=== PATIENT | female | born 1955 | race Caucasian/White ===

== ENCOUNTER 2017-08-10 06:54 | Inpatient (IN) | payer BC, SELFPAY ==
[2017-07-26 09:05] VITALS: BP 137/81; PULSE 99; RESP 16; TEMP 37.3; O2SAT 96; BMI 32.9
--- NOTE | 2017-07-26 09:41 | SDCEKG_ITS ---
Test Reason : Blood Pressure : / mmHG Vent. Rate : 089 BPM Atrial Rate : 089 BPM P-R Int : 160 ms QRS Dur : 086 ms QT Int : 382 ms P-R-T Axes : 029 029 042 degrees QTc Int : 464 ms Normal sinus rhythm Normal ECG Confirmed by GEORGINA ONEAL, PRINCE ([id number]), copy editor SANKET BERNARDO ([id number]) on 07/29/2017 1:35:10 PM Referred By: Yovanny Weller Confirmed By:PRINCE ERICKSON MD
[2017-07-26 10:16] LABS: Absolute Lymphocyte Count 2.56 X10^3/ul (0.83-4.51); Absolute Neutrophil Count 5.2 X10^3/uL (2.0-7.7); Basophil# 0.02 X10^3/uL; Basophil% 0.2 % (0-1); Eosinophil# 0.23 X10^3/uL; Eosinophils% 2.6 % (0-5); Hematocrit 43.1 % (37-47); Hemoglobin 14.1 g/dl (12.0-15.0); Lymphocyte # 2.56 X10^3/ul (4.0); Lymphocyte % 28.6 % (19-41); Mean Corp Hgb Conc 32.7 g/gl (32-36); Mean Corpuscular Hgb 28.3 pg (27.0-32.0); Mean Corpuscular Volume 86.5 fL (81-99); Mean Platelet Vol. 10.5 fl (6.2-12.0); Monocyte# 0.87 X10^3/uL; Monocyte% 9.7 % (0-10); Neutrophil # 5.23 X10^3/uL (2.7-7.7); Neutrophil % 58.6 % (47-70); Platelet Count 269 K/mm3 (150-450); RBC Distribution Width CV 13.8 % (11.6-14.6); RBC Distribution Width SD 43.6 fl (35.1-43.9); Red Blood Count 4.98 M/mm3 (4.2-5.4); White Blood Count 8.9 K/mm3 (4.4-11.0)
[2017-07-26 10:17] LABS: POSITIVE COUNT NO; POSITIVE DIFFERENTIAL NO; POSITIVE MORPHOLOGY NO
[2017-07-26 10:37] LABS: Hemoglobin A1c 7.1 % (4.2-6.3)
[2017-07-26 10:38] LABS: Anion Gap 9 (5-15); BUN 15 mg/dL (7-18); BUN/Creat Ratio 22.1 RATIO (10-20); Calcium,Total 8.7 mg/dL (8.5-10.1); Chloride 105 mmol/L (98-107); Creatinine, Serum 0.68 mg/dL (0.55-1.02); EST Glomerular Filtration Rate 93 mL/min (>60); Est Glom Filt Rate - Afr Amer 113 mL/min (>60); Estimated Creatinine Clearance 74.07 ml/min; Glucose 162 mg/dL (74-106); Potassium 3.8 mmol/L (3.5-5.1); Sodium Level 140 mmol/L (136-145)
--- NOTE | 2017-07-28 15:22 | PCM.HP.BLA ---
History and Physical DATE OF SURGERY: 08/10/2017 SCHEDULED PROCEDURE: Direct anterior right total hip arthroplasty HISTORY OF PRESENT ILLNESS: This is a 62-year-old female who has been having ongoing right hip pain for approximately 3 years. She states over the past 6 months it is progressively become worse. Patient has pain that is constant, dull, aching, and sore. She has increased pain going up and down stairs, walking any amount of distance, sitting for extended periods of time, and driving. Patient does have start up pain. Pain is located in the right groin. Patient has had some sciatic pain that improved with chiropractic treatment. The pain does awaken her at night. She has increased pain with activities of daily living including shopping and leisure activities such as plain and picking up the grandkids. Patient has tried conservative measures consisting of rest, ice, elevation, and weight loss with minimal improvement. Patient has tried physical therapy in the past without any significant relief. She has been through intensive care medicine specialist for sciatic pain which has been helpful. She has tried oral medications consisting of naproxen with minimal relief. Patient denies previous surgery on the right hip. She has been using a cane when she has increased pain in the hip. After failing conservative measures and discussing all treatment options with with a right total hip arthroplasty. Patient does have a medical history pertinent for hypertension and type 2 diabetes mellitus. We are obtaining surgical clearance from her primary care physician Dr. Amado. Patient currently denies any chest pain, shortness of breath, fevers chills, recent infections. REVIEW OF SYSTEMS: ROS: Const: Denies anorexia, anxiety, change in appetite, fever and weight change,hard of hearing, and vision problems. CV: Denies chest pain, heart murmur, irregular heartbeat and peripheral vascular disease. Resp: Denies asthma, cough, pneumonia, sleep apnea, SOB, tuberculosis and wheezing. GI: Denies constipation, diarrhea, nausea, bloody stools and vomiting, and difficulty swallowing.Reports occasional heartburn. : Reports more than 3 months without a period Urinary: denies incontinence. Musculo: Denies leg swelling, trouble walking and weakness and limp. Skin: Reports tattoo, but denies Raynaud's and history of shingles. Neuro: Denies ambulatory dysfunction, dizziness, numbness/tingling and tremor. Psych: Denies anxiety, depression, insomnia, mental illness and stress. Brandon/Lymph: Denies anemia, bleeding/bruising tendency and past transfusion. Reviewed, no changes. PAST MEDICAL HISTORY: Advance Care Plan: Other Directive, LIVING WILL Effective Date: 11/04/2016 Comments: KELLY PENN-SON PMH: Medical Problems: Arthritis, High Blood Pressure, Diabetes Accidents: Fall - Fell 10/29/05 Fracture - right wrist/left elbow fx Surgical Hx: Hysterectomy - 1985 Tubal Ligation - 1980 Bilat Knee Meniscus Tears - 2005, 2009 Knee Replacement LT - (08/19/2014) @[facility] Anesthesia Complications: None Assistive Devices: Dentures, Glasses Reviewed, no changes. 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 Personal Habits: Smoking: Patient has never smoked.Cigarette Use: Never.Alcohol: Occasionally.Drug Use: Denies Use. Reviewed, no changes. VITALS: Ht: 64.5 Wt: 195lb Wt k.452 BMI: 33.0 BP: 118/72 Pulse: 70 Resp: 16 T: 98.5 T: 36.9C ALLERGIES: Tetracycline - Kidney Infection Tavist D - Blacks Out MEDICATIONS: Multivitamins 1 po qdAY, Metformin HCL 500 mg 2 tabs PO bid, Omeprazole 40 mg 1 by mouth every day, Amlodipine Besylate 10 mg 1 tab PO daily, Amaryl 2 mg one PO daily, Cymbalta 30 mg 1 by mouth every day, Tradjenta 5 mg 1 tab PO daily PRE-OP EXAM: General appearance:NORMAL Other: Eyes: Conjunctivae and lids: NORMAL Pupils: ERR Ears, Nose, Mouth, and Throat: NORMAL Other: Inspection of lips, teeth and gums: NORMAL Other: Neck: Examination of neck: no masses noted. Respiratory: Assessment of respiratory effort: NORMAL Other: Ausculation of lungs: clear to ausculation no wheeses, ronchi or rales. Cardiovascular: Ausculation of heart: regular rate and rhythem, no mummurs, gallops or rubs. Exam of carotid arteries: NORMAL Other: Gastrointestinal: Exam of abdomen: soft, nontender, nondistended bowel sounds present. Lymphatic: Palpation of nodes in neck: NORMAL Other: Palpation of nodes in Axillae: NORMAL Other: Neurological: see below Psychiatric: Orientation to time, place and person: NORMAL Other: Mood and affect: NORMAL Other: PHYSICAL EXAMINATION: Patient walks with a severe antalgic gait. Patient has increased pain with range of motion in the right hip with flexion and internal rotation. She has limited motion of internal and external rotation. Hip flexion is to 75?. Sensations intact light touch. Neurovascularly intact. IMAGING STUDIES: X-rays were obtained at [facility] [place] on July 14, 2017 of the right hip which reveals joint space narrowing, subchondral sclerosis, and osteophyte formation consistent with moderate to severe osteoarthritis. IMPRESSION: 1. Moderate to severe right hip osteoarthritis 2. Hypertension 3. Type 2 diabetes mellitus PLAN: Dr. Weller did discuss and review with the patient all treatment options including surgical versus nonsurgical. Patient wishes to proceed with above-stated procedure. Potential risks, benefits, and complications of this procedure were discussed in detail including but not limited to , infection, nerve and blood vessel damage, persistent pain, numbness, tingling, paresthesias, blood clot, pulmonary embolism, and requirement for further surgery. The patient expressed full understanding has no further questions for the doctor. Patient does agree to proceed with the above-stated procedure and has signed the surgery consent form. ___ I have re-examined the patient. There are no clinical changes since date of exam. ___ See progress notes for changes. ___ Dictated on admission Date: Time: Signature:
--- NOTE | 2017-07-28 15:30 | HP.PCM_ITS ---
History and Physical DATE OF SURGERY: 08/10/2017 SCHEDULED PROCEDURE: Direct anterior right total hip arthroplasty HISTORY OF PRESENT ILLNESS: This is a 62-year-old female who has been having ongoing right hip pain for approximately 3 years. She states over the past 6 months it is progressively become worse. Patient has pain that is constant, dull, aching, and sore. She has increased pain going up and down stairs, walking any amount of distance, sitting for extended periods of time, and driving. Patient does have start up pain. Pain is located in the right groin. Patient has had some sciatic pain that improved with chiropractic treatment. The pain does awaken her at night. She has increased pain with activities of daily living including shopping and leisure activities such as plain and picking up the grandkids. Patient has tried conservative measures consisting of rest, ice, elevation, and weight loss with minimal improvement. Patient has tried physical therapy in the past without any significant relief. She has been through medical care evaluation specialist for sciatic pain which has been helpful. She has tried oral medications consisting of naproxen with minimal relief. Patient denies previous surgery on the right hip. She has been using a cane when she has increased pain in the hip. After failing conservative measures and discussing all treatment options with with a right total hip arthroplasty. Patient does have a medical history pertinent for hypertension and type 2 diabetes mellitus. We are obtaining surgical clearance from her primary care physician Dr. Amado. Patient currently denies any chest pain, shortness of breath, fevers chills, recent infections. REVIEW OF SYSTEMS: ROS: Const: Denies anorexia, anxiety, change in appetite, fever and weight change, hard of hearing, and vision problems. CV: Denies chest pain, heart murmur, irregular heartbeat and peripheral vascular disease. Resp: Denies asthma, cough, pneumonia, sleep apnea, SOB, tuberculosis and wheezing. GI: Denies constipation, diarrhea, nausea, bloody stools and vomiting, and difficulty swallowing.Reports occasional heartburn. : Reports more than 3 months without a period Urinary: denies incontinence. Musculo: Denies leg swelling, trouble walking and weakness and limp. Skin: Reports tattoo, but denies Raynaud's and history of shingles. Neuro: Denies ambulatory dysfunction, dizziness, numbness/tingling and tremor. Psych: Denies anxiety, depression, insomnia, mental illness and stress. Brandon/Lymph: Denies anemia, bleeding/bruising tendency and past transfusion. Reviewed, no changes. PAST MEDICAL HISTORY: Advance Care Plan: Other Directive, LIVING WILL Effective Date: 11/04/2016 Comments: KELLY PENN- SON PMH: Medical Problems: Arthritis, High Blood Pressure, Diabetes Accidents: Fall - Fell 10/29/05 Fracture - right wrist/left elbow fx Surgical Hx: Hysterectomy - 1985 Tubal Ligation - 1980 Bilat Knee Meniscus Tears - 2005, 2009 Knee Replacement LT - (08/19/2014) @[facility] Anesthesia Complications: None Assistive Devices: Dentures, Glasses Reviewed, no changes. 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 Personal Habits: Smoking: Patient has never smoked.Cigarette Use: Never.Alcohol : Occasionally.Drug Use: Denies Use. Reviewed, no changes. VITALS: Ht: 64.5 Wt: 195lb Wt k.452 BMI: 33.0 BP: 118/72 Pulse: 70 Resp: 16 T: 98.5 T: 36.9C ALLERGIES: Tetracycline - Kidney Infection Tavist D - Blacks Out MEDICATIONS: Multivitamins 1 po qdAY, Metformin HCL 500 mg 2 tabs PO bid, Omeprazole 40 mg 1 by mouth every day, Amlodipine Besylate 10 mg 1 tab PO daily, Amaryl 2 mg one PO daily, Cymbalta 30 mg 1 by mouth every day, Tradjenta 5 mg 1 tab PO daily PRE-OP EXAM: General appearance:NORMAL Other: Eyes: Conjunctivae and lids: NORMAL Pupils: ERR Ears, Nose, Mouth, and Throat: NORMAL Other: Inspection of lips, teeth and gums: NORMAL Other: Neck: Examination of neck: no masses noted. Respiratory: Assessment of respiratory effort: NORMAL Other: Ausculation of lungs: clear to ausculation no wheeses, ronchi or rales. Cardiovascular: Ausculation of heart: regular rate and rhythem, no mummurs, gallops or rubs. Exam of carotid arteries: NORMAL Other: Gastrointestinal: Exam of abdomen: soft, nontender, nondistended bowel sounds present. Lymphatic: Palpation of nodes in neck: NORMAL Other: Palpation of nodes in Axillae: NORMAL Other: Neurological: see below Psychiatric: Orientation to time, place and person: NORMAL Other: Mood and affect: NORMAL Other: PHYSICAL EXAMINATION: Patient walks with a severe antalgic gait. Patient has increased pain with range of motion in the right hip with flexion and internal rotation. She has limited motion of internal and external rotation. Hip flexion is to 75?. Sensations intact light touch. Neurovascularly intact. IMAGING STUDIES: X-rays were obtained at [facility] [place] on July of the right hip which reveals joint space narrowing, subchondral sclerosis, and osteophyte formation consistent with moderate to severe osteoarthritis. IMPRESSION: 1. Moderate to severe right hip osteoarthritis 2. Hypertension 3. Type 2 diabetes mellitus PLAN: Dr. Weller did discuss and review with the patient all treatment options including surgical versus nonsurgical. Patient wishes to proceed with above- stated procedure. Potential risks, benefits, and complications of this procedure were discussed in detail including but not limited to , infection , nerve and blood vessel damage, persistent pain, numbness, tingling, paresthesias, blood clot, pulmonary embolism, and requirement for further surgery. The patient expressed full understanding has no further questions for the doctor. Patient does agree to proceed with the above-stated procedure and has signed the surgery consent form. ___ I have re-examined the patient. There are no clinical changes since date of exam. ___ See progress notes for changes. ___ Dictated on admission Date: Time: Signature:
[2017-08-10] VITALS (13 sets, daily range): BP systolic 117–152; BP diastolic 63–92; PULSE 100–112; RESP 16–18; TEMP 36.6–37.5; O2SAT 90–97; BMI 32.9; BMI 33.5
--- NOTE | 2017-08-10 07:04 | RAD_ITS ---
STUDY: X-RAY - PELVIS AND RIGHT HIP REASON FOR EXAM: Female, 62 years old. Right total hip surgery. TECHNIQUE: Radiological exam, hip, unilateral, with pelvis when performed; 2 or 3 views. COMPARISON: Fluoroscopic spot imaging 08/10/2017 discretion approximate 9:08 AM. FINDINGS: Typical postsurgical right lateral hip soft tissue swelling subcutaneous emphysema noted. Right hip arthroplasty noted with hemispherical metal acetabular component and metal femoral component, both of which appear well position the extent visualized with portable AP and crosstable views. Left hip joint space appears intact. Severe subchondral sclerosis and narrowing pubis symphysis seen. Left pelvis surgical clips noted. There is a nonobstructive appearing non-specific bowel gas pattern. RAD/Hip Min 2 Views (Portable) IMPRESSION: Right hip metal arthroplasty with typical postsurgical changes as described. Electronically Signed: Akbar Riley, at 15:22 EDT Tel , Service support ,
[2017-08-10] MEDS: Celecoxib 200 MG Capsule 400 MG PO (07:31)
[2017-08-10] MEDS: oxyCODONE HCl Cr 10 MG Tablet PO (07:31)
[2017-08-10] MEDS: Acetaminophen 500 MG Tablet 1000 MG PO ×3 (07:32→21:52)
[2017-08-10 08:51] LABS: Bedside Glucose 184 mg/dL (70-110)
[2017-08-10] MEDS: Cefazolin 2 GM in 0.9% Normal Saline 100 ML IV (08:58)
[2017-08-10] MEDS: Lactated Ringers 1,000 ML 999 ML IV (09:00)
--- NOTE | 2017-08-10 09:00 | RAD_ITS ---
STUDY: X-RAY - PELVIS AND RIGHT HIP REASON FOR EXAM: Female, 62 years old. Right total hip surgery. TECHNIQUE: Radiological exam, hip, unilateral, with pelvis when performed; 1 view COMPARISON: None available. FINDINGS: Right middle hip arthroplasty noted with femoral head osteotomy and hemispherical metal acetabular component well seated appearance within the bony acetabulum noted. Femoral metal component also appears well seated distally within the intramedullary canal. No lucency is identified to indicate toggling/loosening. No malalignment identified. Typical postsurgical changes include right lateral hip soft tissue swelling and subcutaneous emphysema. Left pelvis surgical clips noted. Severe degenerative pubis symphysis with subchondral sclerosis and joint space narrowing. Nonobstructed nonspecific visualized bowel gas pattern. RAD/Hip 1 view with Pelvis IMPRESSION: Typical postsurgical changes noted status post right hip arthroplasty as described. Please see the Orthopedic Surgeon's operative note same day for additional details. Electronically Signed: Akbar Riley, at 14:41 EDT Tel , Service support ,
[2017-08-10] MEDS: Lactated Ringers 1,000 ML 125 ML IV ×2 (10:45→17:44)
[2017-08-10 11:16] LABS: Bedside Glucose 227 mg/dL (70-110)
[2017-08-10] MEDS: Scopolamine 1mg/72hr Patch 1 PATCH TD (11:30)
--- NOTE | 2017-08-10 11:40 | OP.PCM_ITS ---
Report of Operation Date of Procedure: 08/10/17 Pre-Operative Diagnosis: Right hip primary osteoarthritis Post-Operative Diagnosis: Right hip primary osteoarthritis Surgery/Procedure Performed:: Right direct anterior total hip replacement Description of Surgical Findings:: Stable hip with equal leg lengths venipuncturist: Minda Raines Type of Anesthesia:: Spinal Anesthesiologist: Hussein Duke Special Medications: 2 g Ancef, 1 g TXA at incision, 1 g TXA closure, 10 mg Decadron, joint cocktail (5 mg Duramorph, 30 mL of 0.5% Ropivicaine, 1000 units of epinephrine, 30 mg of Toradol) Specimen's removed: Bony cuts Estimated Blood Loss (mL): 150 Fluids Replaced: 1500 ml crystalloid Description of Procedure: Components used: 1. Accolade 2 Alejandra femoral stem size 6 132? 2. [place] trident acetabular shell size 52 mm 3. Alejandra X3 polyethylene E 4. Alejandra Biolox delta 36mm, 0mm femoral head Brief history operative indications: 62 yo f who failed conservative measures for their hip osteoarthritis. X-rays were consistent with osteoarthritis including joint space narrowing, osteophyte formation and subchondral cysts. Total hip replacement was discussed with the patient with risks and benefits including but not limited to blood loss, DVTs, PEs, neurovascular damage, dislocation, general risks of anesthesia including loss of life. Patient demonstrated an understanding medical clearance is obtained the patient was consented for surgery. Procedure: On the date of procedure the patient's r hip was marked in the preoperative area. Patient was then taken back to the operating room where anesthesia assumed control of the C-spine and airway and administered anesthetic. Patient was transferred to the operating table and placed in the supine position. The hips were placed at the break of the bed and a sacral bump was placed. The r lower extremity was then prepped out in a sterile fashion using chlorhexidine while the surgeon scrubbed. The PA was vital in the positioning of the patient. Upon reentering the room the r lower extremity was draped in the standard orthopedic fashion and the incision was marked. A timeout was called and everyone agreed upon the side, the site, the procedure be performed, antibody given, and patient's identity. At this time incision was made through skin, subcutaneous tissue, and fat down to fascia. The fascia was then incised and the TFL was retracted laterally. A retractor was placed on the lateral border of the femoral neck. Attention was directed to the inferior portion of the approach and all crossing vessels were identified and appropriately coagulated. A retractor was then placed on the medial portion of the femoral neck. The anterior capsule was then cleared of all soft tissue and then H shaped capsulotomy was made. The retractors were then placed inside the capsule. The femoral neck was identified and a cleanup cut was made. At this time a power corkscrew was used to remove the femoral head. Attention was then turned toward the acetabulum where the soft tissues were appropriately retracted and the acetabulum was sequentially reamed to 51 mm. A 52 mm cup was then selected and impacted into place. Acetabular liner was impacted into place and locking mechanism was verified. The position of the acetabular cup was then verified under live fluoroscopy. Attention was then turned to the femur. Soft tissue releases on the medial and lateral femoral neck were appropriately done, the leg was externally rotated and lateralized. A Melendez retractor was placed medially and proximally to the greater trochanter this allowed appropriate visualization and exposure of the femoral canal. Rongeour was then used to remove excess lateral bone. A canal finder and entry broach were used to open the proximal canal. Once we verified we were down the femoral canal we subsequently broached up to a size 6 femur. The appropriate neck was placed in the previously selected head was trialed with a 0 mm neck. Traction was pulled and the hip was reduced with internal rotation. Once it was appropriately reduced and stability was checked. There was minimal shuck, equal leg lengths and appropriate stability with hyperextension and external rotation as well as with 90? flexion and internal rotation. Fluoroscopy was then also used to verify the position of the components and leg lengths using the contralateral side for comparison. The trial components were then dislocated the proximal femur was again exposed and the components were removed from the wound. The final components were verified and opened. The wound was copiously irrigated out with normal saline. The acetabulum was checked for any residual debris. The final components were placed and impacted. Traction and internal rotation were again used to reduce the hip. After adequate reduction the hip remained stable with appropriate leg lengths. The final components were once again checked with live fluoroscopy and were found to be satisfactory. The wound was then copiously irrigated with normal saline once more, and hemostasis was obtained. Closure was then done using #1 Vicryl runner to close the fascia. A 2-0 vicryl interuppted sutures were used to close the subcutaneous skin. A 3-0 Monocryl and Steri-Strips were used for final skin closure. A Silverlon dressing was placed. Patient was awakened by anesthesia and transferred to the [facility]. Patient was then transferred to the PACU for recovery. Postoperative plan: Patient will get 24 hours postop antibiotics. Patient will get in-house physical therapy and will be weight-bear as tolerated. Patient will follow up in office in 2 weeks for a wound check and x-rays. Grafts/Implants Used: [place] Accolade 2 - Complications None - Admit VTE Documentation VTE Present on Admission: No VTE Mechan Device Prophylaxis: SCD's, Thigh High AVTAR Hose VTE Pharm Prophylaxis ordered?: Yes
[2017-08-10] MEDS: Famotidine 20 MG Tablet PO (12:54)
[2017-08-10] MEDS: DULoxetine Hcl 30 MG Capsule PO (12:54)
[2017-08-10 16:51] LABS: Bedside Glucose 255 mg/dL (70-110)
[2017-08-10] MEDS: Aspirin 325 MG Tablet PO (17:44)
[2017-08-10] MEDS: Glucerna Shake 120 ML LIQUID PO (17:44)
[2017-08-10] MEDS: metFORMIN HCl 1,000 MG Tablet 1000 MG PO (17:44)
[2017-08-10] MEDS: Glimepiride 2 MG Tablet PO (17:44)
[2017-08-10] MEDS: Cefazolin 1 GM/50 ML BAG IV (17:44)
[2017-08-10] MEDS: Ketorolac 15 MG/ML Vial IV (21:51)
[2017-08-10] MEDS: Senna/Docusate Sodium 1 Tablet 2 TABLET PO (21:52)
[2017-08-11] MEDS: Cefazolin 1 GM/50 ML BAG IV (01:00)
[2017-08-11 02:33] VITALS: BP 135/83; PULSE 103; RESP 18; TEMP 37.1; O2SAT 93
[2017-08-11 06:03] LABS: Anion Gap 7 (5-15); BUN 11 mg/dL (7-18); BUN/Creat Ratio 20.3 RATIO (10-20); Calcium,Total 8.5 mg/dL (8.5-10.1); Chloride 104 mmol/L (98-107); Creatinine, Serum 0.54 mg/dL (0.55-1.02); EST Glomerular Filtration Rate 121 mL/min (>60); Est Glom Filt Rate - Afr Amer 146 mL/min (>60); Estimated Creatinine Clearance 93.28 ml/min; Glucose 145 mg/dL (74-106); Hematocrit 37.8 % (37-47); Hemoglobin 12.7 g/dl (12.0-15.0); Mean Corp Hgb Conc 33.6 g/gl (32-36); Mean Corpuscular Hgb 28.7 pg (27.0-32.0); Mean Corpuscular Volume 85.5 fL (81-99); Mean Platelet Vol. 10.8 fl (6.2-12.0); Platelet Count 262 K/mm3 (150-450); Potassium 3.8 mmol/L (3.5-5.1); RBC Distribution Width CV 13.5 % (11.6-14.6); RBC Distribution Width SD 41.6 fl (35.1-43.9); Red Blood Count 4.42 M/mm3 (4.2-5.4); Sodium Level 139 mmol/L (136-145); White Blood Count 16.7 K/mm3 (4.4-11.0)
[2017-08-11 06:09] LABS: Scan Indicated on CBC? Y/N NO
[2017-08-11 06:30] LABS: Bedside Glucose 155 mg/dL (70-110)
[2017-08-11 07:39] VITALS: BP 130/82; PULSE 95; RESP 14; TEMP 36.6; O2SAT 96
[2017-08-11] MEDS: Senna/Docusate Sodium 1 Tablet 2 TABLET PO (07:44)
[2017-08-11] MEDS: metFORMIN HCl 1,000 MG Tablet 1000 MG PO (07:45)
[2017-08-11] MEDS: amLODIPine 10 MG Tablet PO (07:45)
[2017-08-11] MEDS: Multivitamins,Ther W-Minerals Tablet 1 TABLET PO (07:45)
[2017-08-11] MEDS: Aspirin 325 MG Tablet PO (07:45)
[2017-08-11] MEDS: DULoxetine Hcl 30 MG Capsule PO (07:45)
[2017-08-11] MEDS: LINAGLIPTIN 5 MG TABLET PO (07:45)
[2017-08-11] MEDS: Glimepiride 2 MG Tablet PO (07:45)
[2017-08-11] MEDS: Famotidine 20 MG Tablet PO (07:45)
[2017-08-11] MEDS: Pantoprazole Sodium 40 MG Tablet PO (07:45)
[2017-08-11] MEDS: Glucerna Shake 120 ML LIQUID PO ×2 (07:45→11:52)
[2017-08-11] MEDS: oxyCODONE 5 MG Tablet PO ×2 (07:51→12:00)
--- NOTE | 2017-08-11 08:19 | PCM.PN.ORT ---
- Physical Exam Vital Signs Temp Pulse Resp BP Pulse Ox 97.9 F 95 14 130/82 H 96 08/11/17 07:39 08/11/17 07:39 08/11/17 07:39 08/11/17 07:39 08/11/17 07:39 Oxygen Flow Rate (L/min) 1 Oxygen Delivery Method Room Air Weight: 88.451 kg Body Mass Index (BMI) 33.5 Intake and Output for Last 24 Hours 08/09/17 08/10/17 08/11/17 23:59 23:59 23:59 Intake Total 3738 / 3738 Output Total 1700 / 1700 Balance 2037 Laboratory Tests Past 24 Hrs 08/11/17 08/11/17 05:10 05:10 WBC 16.7 H RBC 4.42 Hgb 12.7 Hct 37.8 MCV 85.5 MCH 28.7 MCHC 33.6 RDW 13.5 RDW Differential 41.6 Plt Count 262 MPV 10.8 Sodium 139 Potassium 3.8 Chloride 104 Carbon Dioxide 28.0 Anion Gap 7 BUN 11 Creatinine 0.54 L Estim Creat Clear Calc 93.28 Est GFR (MDRD) Af Amer 146 Est GFR (MDRD) Non-Af 121 BUN/Creatinine Ratio 20.3 H Glucose 145 H Calcium 8.5 POC Glucose 08/11/17 08/10/17 08/10/17 06:24 16:39 11:13 POC Glucose 155 H 255 H 227 H 08/10/17 07:16 POC Glucose 184 H Medical Necessity - Tobacco Use Smoking Status: Never smoker
--- NOTE | 2017-08-11 09:35 | PN.ORTHO_ITS ---
Subjective: The patient was sitting in bedside chair upon examination. Patient denies any chest pain, shortness of breath, dizziness, lightheadedness, nausea or vomiting , or calf pain. Pain is controlled on medications. No adverse overnight events. Overall patient is doing very well. Patient does wish to go home today. Objective: Vital signs stable and afebrile. Patient is able to plantarflex and dorsiflex actively. Sensation is intact to light touch to saphenous, sural, superficial and deep peroneal, and tibial distribution. Dressing is clean dry and intact. Negative Homans bilaterally, negative signs and symptoms of DVT. - Physical Exam General: Alert, Oriented x3, Cooperative, No apparent distress Vital Signs Temp Pulse Resp BP Pulse Ox 97.9 F 95 14 130/82 H 96 08/11/17 07:39 08/11/17 07:39 08/11/17 07:39 08/11/17 07:39 08/11/17 07:39 Oxygen Flow Rate (L/min) 1 Oxygen Delivery Method Room Air Weight: 88.451 kg Body Mass Index (BMI) 33.5 Intake and Output for Last 24 Hours 08/09/17 08/10/17 08/11/17 23:59 23:59 23:59 Intake Total 3738 / 3738 Output Total 1700 / 1700 Balance 2037 / 2037 Laboratory Tests Past 24 Hrs 08/11/17 08/11/17 05:10 05:10 WBC 16.7 H RBC 4.42 Hgb 12.7 Hct 37.8 MCV 85.5 MCH 28.7 MCHC 33.6 RDW 13.5 RDW Differential 41.6 Plt Count 262 MPV 10.8 Sodium 139 Potassium 3.8 Chloride 104 Carbon Dioxide 28.0 Anion Gap 7 BUN 11 Creatinine 0.54 L Estim Creat Clear Calc 93.28 Est GFR (MDRD) Af Amer 146 Est GFR (MDRD) Non-Af 121 BUN/Creatinine Ratio 20.3 H Glucose 145 H Calcium 8.5 POC Glucose 08/11/17 08/10/17 08/10/17 06:24 16:39 11:13 POC Glucose 155 H 255 H 227 H Medical Necessity - Tobacco Use Smoking Status: Never smoker Assessment/Plan 1. S/P right direct anterior total hip arthroplasty POD #1 2. Continue Pain Medications: Tylenol and OxyIR 3. DVT Prophylaxis: Aspirin 325 mg twice daily 4. PT/OT: Weightbearing as tolerated 5. H & H: 12.7/37.8, asymptomatic 6. Leukocytosis: Currently 16.7, afebrile. Patient did receive Decadron intraoperatively 7. Encouraged Incentive Spirometry 8. Disposition: Orthopedically stable, plan is for discharge home today. Prescriptions will be E scribed to [facility]. Patient will follow-up per [facility] postop instructions.
--- NOTE | 2017-08-11 09:40 | PCM.DC.THR ---
Discharge Diet: 1800 Calorie Control Diet Discharge Activity: May Not Drive - while taking narcotic pain medications. May shower in (days): 1 - Turned dressing away from water Ice area for (Minutes): 20 - Every 1 hour while awake Weight Bearing Status: Weight bearing as tolerated Additional Activity Instructions:: Wear elastic stockings for 2 weeks. DO NOT use alcohol with narcotic pain medication. DO NOT make important decisions while taking narcotic medication. If you have problems with taking your medication (rash, itching, nausea, etc.) call the office at once. Call your doctor if your incision/area has: Increased Pain/ Swelling, Increased Redness, Foul Smelling Discharge Call your doctor if you observe: Fever of 101 or Higher Remove Dressing in (days):: 4 - Okay to remove on August 15, 2017 Additional Instructions: Follow [facility] postop instructions Allergies/Adverse Reactions: Allergies clemastine fumarate [From Tavist] Allergy (Verified 07/26/17 09:01) Shortness of breath pseudoephedrine HCl [From Tavist] Allergy (Verified 07/26/17 09:01) Shortness of breath Tayzycr-Pde-Lui Reductase Inhibitor Adverse Reaction (Verified 07/26/17 09:01) Other Tetracyclines Adverse Reaction (Verified 07/26/17 09:01) Other Medications to take at Discharge Amlodipine [Norvasc] 10 mg PO DAILY 03/14/16 Duloxetine Hcl [Cymbalta] 30 mg PO DAILY 03/14/16 Glimepiride [Amaryl] 2 mg PO BID 03/14/16 Metformin HCl [Glucophage] 1,000 mg PO BIDCM 03/14/16 Multivit-Min/Iron Fum/Folic AC [Qftjk-Dftzjqj-Zpkbnprv Tablet] 1 each PO DAILY 03/14/16 Omeprazole [Prilosec] 40 mg PO DAILY 03/14/16 Ergocalciferol [Vitamin D] 50,000 unit PO Q7D 07/26/17 Linagliptin [Tradjenta] 5 mg PO DAILY 07/26/17 Acetaminophen [Tylenol] 1,000 mg PO Q8 #90 tab 08/11/17 Aspirin 325 mg PO BIDCM #30 tab 08/11/17 Oxycodone [Oxyir] 5 - 10 mg PO Q4H PRN PRN 5 Days #60 tablet 08/11/17 Senna/Docusate Sodium [Senokot-S] 2 tab PO BID #20 tab 08/11/17 The following prescriptions were given: Oxycodone [Oxyir] 5 - 10 mg PO Q4H PRN PRN 5 Days #60 tablet PRN Reason: Mod-Severe Pain (-02/22) Acetaminophen [Tylenol] 1,000 mg PO Q8 #90 tab Aspirin 325 mg PO BIDCM #30 tab Senna/Docusate Sodium [Senokot-S] 2 tab PO BID #20 tab Primary Care Physician: Estrella Amado MD [Primary Care Provider] - Please Follow Up With: [facility] When: 08/15/17 @ 10:00 am Please Follow Up With: Ulices Penn PA-C When: 08/24/17 @ 10:00 am
--- NOTE | 2017-08-11 10:59 | CASEMGMT ---
SOCO SAINZ Face to Face with patient for initial transition planning/care coordination assessment. RN EMELI introduced self and role at [facility]. Patient sitting in chair, alert and oriented. Patient willing to participate in assessment and is able to answer all questions appropriately. Care providers, pharmacy, and demographics verified. Patient has shower chair, raised toilet seat, cane, crutches, hip kit, and walker at home. Patient wishes to discharge home, is setup with [facility] for outpatient therapy and providing transportation. Patient states she has no further needs or concerns at this time. CM to follow for discharge planning needs that may arise. Disposition Plan: Patient to discharge home with outpatient therapy, family support, and follow-up plans in place.
[2017-08-11 11:08] VITALS: O2SAT 95
[2017-08-11] MEDS: Acetaminophen 500 MG Tablet 1000 MG PO (11:45)
[2017-08-11 11:56] LABS: Bedside Glucose 177 mg/dL (70-110)
[2017-08-11 13:19] VITALS: BP 98/63; PULSE 81; RESP 14; TEMP 36.8; O2SAT 98
== END 2017-08-11 14:17 | disposition home or self-care (01) | DRG 470 ==
PROVIDERS: Admitting Provider Specialist; Family Provider Internal Medicine; PCP Internal Medicine; Visit Provider Specialist
PROC: 0SR902Z Replacement of Right Hip Joint with Metal on Polyethylene Synthetic Substitute, Open Approach (ICD-10-PCS; CPT 27284; principal; 2017-08-10 08:35)
DX: M16.11 Unilateral primary osteoarthritis, right hip (principal); D72.829 Elevated white blood cell count, unspecified; E11.9 Type 2 diabetes mellitus without complications; I10 Essential (primary) hypertension; K21.9 Gastro-esophageal reflux disease without esophagitis; Z96.652 Presence of left artificial knee joint; Z79.899 Other long term (current) drug therapy; Z79.84 Long term (current) use of oral hypoglycemic drugs; Z79.82 Long term (current) use of aspirin
CPT/HCPCS: 36415; 73501; 73502; 76000; 80048; 82962; 83036; 85025; 85027; 87081; 97110; 97116; 97162; 97165; 97530; 99251; J7120; G0463; J2405

== ENCOUNTER → 2021-12-08 | Outpatient (CLI) | payer BC, SELFPAY ==
[2021-12-08 11:27] LABS: PTHIN 47.2 pg/mL (18.4-80.1)
[2021-12-08 11:32] LABS: Thyroid Stim Hormone (TSH) 1.29 uIU/mL (0.358-3.74)
== END | disposition home or self-care (01) ==
LOC: LAB 09:13
PROVIDERS: PCP Internal Medicine; Referring Provider Nurse Practitioner Family; Visit Provider Nurse Practitioner Family
DX: E11.9 Type 2 diabetes mellitus without complications (principal); M81.0 Age-related osteoporosis without current pathological fracture
CPT/HCPCS: 36415; 83970; 84443

== ENCOUNTER → 2021-12-21 | Outpatient (CLI) | payer BC, SELFPAY ==
[2021-12-21 13:04] VITALS: BP 141/75; PULSE 101; RESP 16; TEMP 36.4; O2SAT 98
[2021-12-21] MEDS: 0.9% NaCl IVPB Med Flush (250 mL) 15 ML IV (13:21)
[2021-12-21] MEDS: 0.9% NaCl Peripheral Flush Adult/Peds IV (13:21)
[2021-12-21] MEDS: Zoledronic Acid 5 MG 100 ML 300 MG IV (13:21)
[2021-12-21 13:52] VITALS: BP 120/80; PULSE 108
== END | disposition home or self-care (01) ==
LOC: MEDOUTP 12:51
PROVIDERS: PCP Internal Medicine; Referring Provider Internal Medicine Endocrinology, Diabetes & Metabolism; Visit Provider Internal Medicine Endocrinology, Diabetes & Metabolism
DX: M81.0 Age-related osteoporosis without current pathological fracture (principal)
CPT/HCPCS: 96365; J7050; A4216; J3489

== ENCOUNTER → 2022-11-01 | Outpatient (CLI) | payer BC, SELFPAY ==
[2022-11-01 08:35] LABS: Absolute Neutrophil Count 5.3 X10^3/uL (2.0-7.7); Basophil# 0.06 X10^3/uL; Basophil% 0.7 % (0-1); Eosinophil# 0.23 X10^3/uL; Eosinophils% 2.7 % (0-5); Hematocrit 41.3 % (37-47); Hemoglobin 13.1 g/dL (12.0-15.0); Lymphocyte % 27.8 % (19-41); Mean Corp Hgb Conc 31.7 g/dL (32-36); Mean Corpuscular Hgb 26.4 pg (27.0-32.0); Mean Corpuscular Volume 83.3 fL (81-99); Monocyte# 0.57 X10^3/uL; Monocyte% 6.6 % (0-10); NRBC Flagged by Analyzer 0 % (0-5); Neutrophil # 5.33 X10^3/uL (2.7-7.7); Neutrophil % 61.7 % (47-70); Platelet Count 359 K/mm3 (150-450); RBC Distribution Width CV 14.7 % (11.6-14.6); RBC Distribution Width SD 44.6 fl (35.1-43.9); Red Blood Count 4.96 M/mm3 (4.2-5.4); White Blood Count 8.6 K/mm3 (4.4-11.0)
[2022-11-04 17:07] LABS: Alternaria tenuis <0.10 kU/L (Class 0); Ash, White <0.10 kU/L (Class 0); Aspergillus fumigatus <0.10 kU/L (Class 0); Bermuda Grass <0.10 kU/L (Class 0); Birch <0.10 kU/L (Class 0); Black Walnut <0.10 kU/L (Class 0); Cat Hair / Dander,Stand <0.10 kU/L (Class 0); Cedar, Mountain <0.10 kU/L (Class 0); Cladosporium herbarum <0.10 kU/L (Class 0); Cockroach, American <0.10 kU/L (Class 0); Cottonwood <0.10 kU/L (Class 0); D farinae Mite <0.10 kU/L (Class 0); D pteronyssinus <0.10 kU/L (Class 0); Dog Epithelia <0.10 kU/L (Class 0); Elm, American White <0.10 kU/L (Class 0); Immunoglobulin E 81 IU/mL (6-495); Maple/Box Elder <0.10 kU/L (Class 0); Mouse Urine <0.10 kU/L (Class 0); Mulberry, White <0.10 kU/L (Class 0); Oak, White <0.10 kU/L (Class 0); Pecan 0.11 kU/L (Class 0/I); Penicillium Notatum <0.10 kU/L (Class 0); Pigweed, Rough <0.10 kU/L (Class 0); Ragweed, Short/Common <0.10 kU/L (Class 0); Russian Thistle <0.10 kU/L (Class 0); Sheep Sorrel <0.10 kU/L (Class 0); Sycamore, American <0.10 kU/L (Class 0); Timothy Grass <0.10 kU/L (Class 0)
[2022-11-05 20:07] LABS: Aspirgillus flavus Negative (Neg:<1:1); Aspirgillus fumigatus Negative (Neg:<1:1); Aspirgillus niger Negative (Neg:<1:1); Immunoglobulin E 93 IU/mL (6-495)
== END | disposition home or self-care (01) ==
LOC: PAVLAB 08:10
PROVIDERS: PCP Internal Medicine; Referring Provider Internal Medicine Critical Care Medicine; Visit Provider Internal Medicine Critical Care Medicine
DX: R05.3 Chronic cough (principal)
CPT/HCPCS: 36415; 82785; 85025; 86003; 86606

== ENCOUNTER → 2022-11-29 | Outpatient (CLI) | payer BC, SELFPAY ==
--- NOTE | 2022-11-30 05:37 | PFTCOMP_ITS ---
COMPLETE PULMONARY FUNCTION TEST INTERPRETATION Brief HPI: Patient is a 67-year-old female, currently under the care of Dr. Hussein, who presents to [facility] for complete pulmonary function tests secondary to diagnosis of chronic cough. Respiratory therapist reports good effort and reproducible results. Interpretation: Forced expiration spirometry shows no large airways obstructive ventilatory defect with an FEV1 of 90% predicted. There is no significant bronchodilator response by strict ATS criteria. Spirograms are of good quality and plateau normally. The respiratory flow volume loop shows a normal pattern. Lung volumes by body plethysmography show a slightly decreased total lung capacity at 3.72 L, 74% predicted. All other lung volumes are reduced symmetrically. Diffusion capacity by carbon monoxide is normal at 84% predicted. The airway resistance is normal. No previous pulmonary function tests were available for review. Impression: Mild restrictive ventilatory defect with relatively preserved spirometry and DLCO, and a pattern consistent with musculoskeletal limitation
== END | disposition home or self-care (01) ==
LOC: PSN 06:47
PROVIDERS: PCP Internal Medicine; Referring Provider Internal Medicine Critical Care Medicine; Visit Provider Internal Medicine Critical Care Medicine
DX: R05.3 Chronic cough (principal)
CPT/HCPCS: 94060; 94726; 94729

== ENCOUNTER → 2022-12-07 | Outpatient (CLI) | payer BC, SELFPAY ==
[2022-12-07 08:23] LABS: Vitamin D,25 Hydroxy 38.9 ng/mL
[2022-12-07 08:33] LABS: ALB/GLOB Ratio 0.8 RATIO (0.9-2.4); AST(SGOT) 26 U/L (15-37); Alanine Aminotransfer ALT/SGPT 32 U/L (13-56); Albumin, Serum 3.4 g/dL (3.2-5.0); Alkaline Phosphatase 64 U/L (45-117); Anion Gap 5 (5-15); BUN 14 mg/dL (7-18); BUN/Creat Ratio 18.8 RATIO (10-20); Calcium,Total 8.6 mg/dL (8.5-10.1); Chloride 104 mmol/L (98-107); Cholesterol 180 mg/dL (200); Creatinine, Serum 0.75 mg/dL (0.55-1.02); EST Glomerular Filtration Rate 82 mL/min (>60); Est Glom Filt Rate - Afr Amer 100 mL/min (>60); Globulin 4.5 g/dL (2.2-4.2); Glucose 149 mg/dL (74-106); High Density Lipoprotein 43 mg/dL; Potassium 4.3 mmol/L (3.5-5.1); Protein, Total 7.9 g/dL (6.4-8.2); Sodium Level 136 mmol/L (136-145); Thyroid Stim Hormone (TSH) 1.41 uIU/mL (0.358-3.74); Triglycerides 237 mg/dL; Very Low Density Lipoprotein 47 mg/dL (5-40)
== END | disposition home or self-care (01) ==
LOC: LAB 07:28
PROVIDERS: PCP Internal Medicine; Referring Provider Nurse Practitioner Family; Visit Provider Nurse Practitioner Family
DX: M81.0 Age-related osteoporosis without current pathological fracture (principal); E11.9 Type 2 diabetes mellitus without complications; Z13.9 Encounter for screening, unspecified; E66.9 Obesity, unspecified
CPT/HCPCS: 36415; 80053; 80061; 82306; 84443

== ENCOUNTER 2022-12-24 12:16 | Outpatient (CLI) | payer BC, SELFPAY ==
[2022-12-24 12:25] VITALS: BP 144/68; PULSE 103; RESP 16; TEMP 36.7; O2SAT 96
[2022-12-24] MEDS: 0.9% NaCl Peripheral Flush Adult/Peds IV (12:33)
[2022-12-24] MEDS: Zoledronic Acid 5 MG 100 ML 300 MG IV (12:40)
[2022-12-24 13:04] VITALS: PULSE 96; RESP 16; TEMP 36.8; O2SAT 97
== END 2022-12-24 12:17 | disposition home or self-care (01) ==
LOC: MEDOUTP 12:17
PROVIDERS: PCP Internal Medicine; Referring Provider Nurse Practitioner Family; Visit Provider Nurse Practitioner Family
DX: M81.0 Age-related osteoporosis without current pathological fracture (principal)
CPT/HCPCS: 96374; A4216; J3489

== ENCOUNTER → 2023-03-14 | Outpatient (CLI) | payer BC, SELFPAY ==
[2023-03-14 11:32] LABS: Microalbumin,Random Urine 27.1 mg/L (NO RANGE EST.); Microalbumin:Creatinine Ratio 18.6 mg/g CRE (<30 mg/g CRE)
== END | disposition home or self-care (01) ==
PROVIDERS: PCP Internal Medicine; Visit Provider Nurse Practitioner Family
DX: E11.9 Type 2 diabetes mellitus without complications (principal)
CPT/HCPCS: 82043; 82570

== ENCOUNTER → 2023-12-06 | Outpatient (CLI) | payer BC, SELFPAY ==
[2023-12-06 08:48] LABS: Microalbumin,Random Urine 17.9 mg/L (NO RANGE EST.)
[2023-12-06 09:07] LABS: Vitamin D,25 Hydroxy 50.3 ng/mL
[2023-12-06 09:17] LABS: ALB/GLOB Ratio 0.7 RATIO (0.9-2.4); AST(SGOT) 33 U/L (15-37); Alanine Aminotransfer ALT/SGPT 33 U/L (13-56); Albumin, Serum 3.3 g/dL (3.2-5.0); Alkaline Phosphatase 65 U/L (45-117); Anion Gap 7 (5-15); BUN 15 mg/dL (7-18); BUN/Creat Ratio 20.7 RATIO (10-20); Calcium,Total 8.4 mg/dL (8.5-10.1); Chloride 103 mmol/L (98-107); Cholesterol 176 mg/dL (200); Creatinine, Serum 0.72 mg/dL (0.55-1.02); EST Glomerular Filtration Rate 85 mL/min (>60); Est Glom Filt Rate - Afr Amer 103 mL/min (>60); Globulin 4.7 g/dL (2.2-4.2); Glucose 176 mg/dL (74-106); High Density Lipoprotein 45 mg/dL; Potassium 4.2 mmol/L (3.5-5.1); Sodium Level 136 mmol/L (136-145); Thyroid Stim Hormone (TSH) 1.26 uIU/mL (0.358-3.74); Triglycerides 207 mg/dL; Very Low Density Lipoprotein 41 mg/dL (5-40)
== END | disposition home or self-care (01) ==
PROVIDERS: PCP Internal Medicine; Referring Provider Nurse Practitioner Family; Visit Provider Nurse Practitioner Family
DX: E11.65 Type 2 diabetes mellitus with hyperglycemia (principal)
CPT/HCPCS: 36415; 80053; 80061; 82043; 82306; 82570; 84443